=== PATIENT | male | born 1935 | race Caucasian/White ===

== ENCOUNTER 2020-03-13 20:16 | Inpatient (IN) ==
[2020-03-13] MEDS ORDERED: 0.9 % Sodium Chloride 1,000 ML IVC ONE (20:47)
[2020-03-13 21:50] LABS: Basophils % 0.2 %; Hematocrit 33.3 % (37.5-50.1); Hemoglobin 10.6 g/dL (12.9-16.9); Immature Granulocytes % 0.3 % (0-4); Lymphocytes # 0.6 K/mcL (0.6-4.6); Lymphocytes % 3.8 %; Mean Corpuscular HGB Conc 31.8 g/dL (31.6-35.5); Mean Corpuscular Hemoglobin 27.9 pg (28.0-33.3); Mean Corpuscular Volume 87.6 fL (83.0-100.0); Mean Platelet Volume 8.9 fL (9.4-12.4); Monocytes # 0.7 K/mcL (0.0-1.3); Monocytes % 4.1 %; Neutrophils # 14.6 K/mcL (1.6-8.9); Platelet Count 334 K/mcL (140-400); Segmented Neutrophils % 91.6 %; White Blood Count 15.9 K/mcL (4.3-11.1)
[2020-03-13 21:52] LABS: INR 1.4; Prothrombin Time 15.7 Seconds (9.4-12.1)
[2020-03-13 22:00] LABS: Activated Partial Thrombo Time 37.6 Seconds (26.0-36.0)
[2020-03-13 22:03] LABS: BUN/Creatinine Ratio 34 (6-26); Blood Urea Nitrogen 43 mg/dL (8-23); Calcium 9.9 mg/dL (8.6-10.3); Carbon Dioxide 28 mEq/L (23-29); Chloride 105 mEq/L (98-107); Glucose 182 mg/dL (70-105); Osmolality,Calculated 311 (280-300); Sodium 143 mEq/L (136-145); eGFR For African Americans > 60 (> 60); eGFR For Non-African Americans 54 (> 60)
[2020-03-13] MEDS ORDERED: Piperacillin/Tazobactam 4.5 GM in 0.9 % Sodium Chloride Mini Bag 100 ML IVPB ONE (22:10)
[2020-03-13] MEDS ORDERED: levoFLOXacin 750 MG/150 ML 750 MG/150 ML BAG IVPB ONE (22:11)
[2020-03-13 22:20] LABS: Bilirubin,Urine Negative (Negative); Blood,Urine Trace-intact (Negative); Clarity,Urine Clear (Clear); Color,Urine Yellow (Yellow); Glucose,Urine (UA) Normal (Normal); Ketones,Urine Trace mg/dL (Negative); Leukocyte Esterase,Urine Negative (Negative); Nitrite,Urine Negative (Negative); Protein,Urine 100 mg/dL (Neg-Trace); Urobilinogen,Urine Normal (Normal)
[2020-03-13 22:27] LABS: Bacteria,Urine None Seen per hpf (None-Few); RBC,Urine 0-3 per hpf (0-3); Squamous Epithelial Cell,Urine Few per hpf (None-Few); Transitional Epi Cells,Urine Few per hpf (None-Few); WBC,Urine 0-3 per hpf (0-3)
[2020-03-14] MEDS ORDERED: 0.9 % Sodium Chloride 1,000 ML IVC SCH ×2 (00:45→04:24)
[2020-03-14] MEDS ORDERED: Mag Hydrox/Al Hydrox/Simeth 30 ML UDC PO PRN (04:24)
[2020-03-14] MEDS ORDERED: Naloxone 0.4 MG/ML INJ IVP PRN (04:24)
[2020-03-14] MEDS ORDERED: Vancomycin (wt based) 1,000 MG VIAL IVPB SCH (04:24)
[2020-03-14] MEDS: 0.9 % Sodium Chloride 1,000 ML IVC SCH ×3 (05:02→22:15)
[2020-03-14] MEDS ORDERED: MOM Conc 10 ML UD.LIQ PO PRN (09:00)
[2020-03-14] MEDS: Divalproex (12 HR) 250 MG TABLET PO SCH ×2 (09:08→22:15)
[2020-03-14] MEDS: risperiDONE 0.25 MG TABLET PO SCH ×2 (09:08→22:15)
[2020-03-14] MEDS: Sennosides/Docusate Sodium TABLET PO SCH ×2 (09:18→22:15)
[2020-03-14] MEDS ORDERED: 0.9 % Sodium Chloride 500 ML IVC PRN (09:39)
[2020-03-14] MEDS ORDERED: Aminoglycoside Consult 1 EACH MC ONE (13:22)
[2020-03-14] MEDS: Haloperidol Lactate 5 MG/ML VIAL IVP PRN ×2 (13:38→22:15)
[2020-03-14] MEDS ORDERED: Vancomycin 500 MG in 0.9 % Sodium Chloride Mini Bag 100 ML IVPB ONE (18:38)
[2020-03-14 18:48] LABS: BUN/Creatinine Ratio 38 (6-26); Blood Urea Nitrogen 39 mg/dL (8-23); eGFR For African Americans > 60 (> 60); eGFR For Non-African Americans > 60 (> 60)
[2020-03-14] MEDS ORDERED: Vancomycin 1 EACH in 0.9 % Sodium Chloride 250 ML IVPB SCH (19:00)
[2020-03-14] MEDS: Melatonin 3 MG TABLET PO SCH (22:15)
[2020-03-15] MEDS: 0.9 % Sodium Chloride 1,000 ML IVC SCH (04:35)
[2020-03-15] MEDS ORDERED: *HR* Enoxaparin 30 MG/0.3 ML SYRINGE SQ SCH (06:00)
[2020-03-15] MEDS ORDERED: Divalproex Sodium 125 MG CAPSULE PO SCH (09:30)
[2020-03-15] MEDS: Divalproex Sodium 125 MG CAPSULE PO SCH ×2 (09:57→20:43)
[2020-03-15] MEDS: risperiDONE 0.25 MG TABLET PO SCH ×2 (09:59→20:43)
[2020-03-15] MEDS: Ferrous Sulfate Oral Soln 300 MG/5 ML UDC PO SCH (10:01)
[2020-03-15] MEDS: Docusate Oral Soln 100 MG/10 ML UDC PO SCH ×2 (10:02→20:43)
[2020-03-15] MEDS: Piperacillin/Tazobactam 3.375 GM in 0.9 % Sodium Chloride Mini Bag 100 ML IVPB SCH ×3 (10:04→19:46)
[2020-03-15] MEDS: Divalproex (12 HR) 250 MG TABLET PO SCH (10:20)
[2020-03-15 12:29] LABS: Basophils % 0.2 %; Hematocrit 29.1 % (37.5-50.1); Hemoglobin 9.3 g/dL (12.9-16.9); Immature Granulocytes % 0.7 % (0-4); Lymphocytes # 1.5 K/mcL (0.6-4.6); Lymphocytes % 7.2 %; Mean Corpuscular Hemoglobin 28.4 pg (28.0-33.3); Mean Corpuscular Volume 88.7 fL (83.0-100.0); Mean Platelet Volume 9.7 fL (9.4-12.4); Monocytes # 0.9 K/mcL (0.0-1.3); Monocytes % 4.5 %; Neutrophils # 17.9 K/mcL (1.6-8.9); Platelet Count 220 K/mcL (140-400); Red Blood Count 3.28 M/mcL (4.19-5.50); Red Cell Distribution Width 15.1 % (11.5-14.5); Segmented Neutrophils % 87.4 %; White Blood Count 20.5 K/mcL (4.3-11.1)
[2020-03-15] MEDS ORDERED: Piperacillin/Tazobactam 3.375 GM in 0.9 % Sodium Chloride Mini Bag 100 ML IVPB SCH (16:00)
[2020-03-15] MEDS: Melatonin 3 MG TABLET PO SCH (20:43)
[2020-03-15] MEDS: Haloperidol Lactate 5 MG/ML VIAL IVP PRN (22:29)
[2020-03-16] MEDS: Piperacillin/Tazobactam 3.375 GM in 0.9 % Sodium Chloride Mini Bag 100 ML IVPB SCH ×3 (04:08→21:45)
[2020-03-16 06:15] LABS: Basophils % 0.1 %; Eosinophils % 0.3 %; Hematocrit 28.1 % (37.5-50.1); Immature Granulocytes % 0.5 % (0-4); Lymphocytes # 1.4 K/mcL (0.6-4.6); Lymphocytes % 9.2 %; Mean Corpuscular Hemoglobin 27.7 pg (28.0-33.3); Mean Corpuscular Volume 86.5 fL (83.0-100.0); Mean Platelet Volume 9.7 fL (9.4-12.4); Monocytes # 0.7 K/mcL (0.0-1.3); Monocytes % 4.6 %; Neutrophils # 12.8 K/mcL (1.6-8.9); Platelet Count 208 K/mcL (140-400); Red Blood Count 3.25 M/mcL (4.19-5.50); Red Cell Distribution Width 14.8 % (11.5-14.5); Segmented Neutrophils % 85.3 %
[2020-03-16 06:22] LABS: Eosinophils # 0.1 K/mcL (0.0-0.6)
[2020-03-16 06:33] LABS: BUN/Creatinine Ratio 32 (6-26); Blood Urea Nitrogen 31 mg/dL (8-23); Calcium 8.4 mg/dL (8.6-10.3); Carbon Dioxide 26 mEq/L (23-29); Chloride 109 mEq/L (98-107); Glucose 79 mg/dL (70-105); Osmolality,Calculated 297 (280-300); Potassium 2.9 mEq/L (3.5-5.1); Sodium 141 mEq/L (136-145); eGFR For African Americans > 60 (> 60); eGFR For Non-African Americans > 60 (> 60)
[2020-03-16] MEDS: Ferrous Sulfate Oral Soln 300 MG/5 ML UDC PO SCH (11:48)
[2020-03-16] MEDS: Divalproex Sodium 125 MG CAPSULE PO SCH ×3 (11:48→21:44)
[2020-03-16] MEDS: Docusate Oral Soln 100 MG/10 ML UDC PO SCH ×2 (11:48→21:45)
[2020-03-16] MEDS: risperiDONE 0.25 MG TABLET PO SCH ×2 (11:49→21:44)
[2020-03-16] MEDS ORDERED: Potassium Chloride Elixir 20 MEQ/15 ML UDC PO ONE ×2 (12:35→13:15)
[2020-03-16 20:29] LABS: BUN/Creatinine Ratio 30 (6-26); Blood Urea Nitrogen 29 mg/dL (8-23); Calcium 8.9 mg/dL (8.6-10.3); Carbon Dioxide 22 mEq/L (23-29); Chloride 107 mEq/L (98-107); Glucose 90 mg/dL (70-105); Osmolality,Calculated 295 (280-300); Potassium 3.8 mEq/L (3.5-5.1); Sodium 140 mEq/L (136-145); eGFR For African Americans > 60 (> 60); eGFR For Non-African Americans > 60 (> 60)
[2020-03-16] MEDS: haloperidoL 1 MG TABLET PO PRN (21:44)
[2020-03-16] MEDS: Melatonin 3 MG TABLET PO SCH (21:44)
[2020-03-17] MEDS: Piperacillin/Tazobactam 3.375 GM in 0.9 % Sodium Chloride Mini Bag 100 ML IVPB SCH ×3 (04:45→21:00)
[2020-03-17] MEDS: Ferrous Sulfate Oral Soln 300 MG/5 ML UDC PO SCH (08:32)
[2020-03-17] MEDS: Divalproex Sodium 125 MG CAPSULE PO SCH ×2 (08:32→22:34)
[2020-03-17] MEDS: risperiDONE 0.25 MG TABLET PO SCH ×2 (08:32→22:35)
[2020-03-17] MEDS: Docusate Oral Soln 100 MG/10 ML UDC PO SCH ×2 (08:33→22:33)
[2020-03-17] MEDS: haloperidoL 1 MG TABLET PO PRN (22:35)
[2020-03-17] MEDS: Melatonin 3 MG TABLET PO SCH (22:35)
[2020-03-18] MEDS ORDERED: Permethrin Cream Rinse 60 ML LIQUID TP ONE (04:00)
[2020-03-18] MEDS: Piperacillin/Tazobactam 3.375 GM in 0.9 % Sodium Chloride Mini Bag 100 ML IVPB SCH ×3 (06:15→20:26)
[2020-03-18] MEDS: Divalproex Sodium 125 MG CAPSULE PO SCH ×3 (09:21→20:44)
[2020-03-18] MEDS: Ferrous Sulfate Oral Soln 300 MG/5 ML UDC PO SCH (09:21)
[2020-03-18] MEDS: Docusate Oral Soln 100 MG/10 ML UDC PO SCH ×2 (09:21→20:26)
[2020-03-18] MEDS: risperiDONE 0.25 MG TABLET PO SCH ×2 (09:21→20:25)
[2020-03-18] MEDS: *HR* LORazepam 0.5 MG TABLET PO PRN (20:25)
[2020-03-18] MEDS: Melatonin 3 MG TABLET PO SCH ×2 (20:25→20:44)
[2020-03-19] MEDS: Piperacillin/Tazobactam 3.375 GM in 0.9 % Sodium Chloride Mini Bag 100 ML IVPB SCH ×3 (03:15→21:13)
[2020-03-19 05:39] LABS: Basophils % 0.2 %; Eosinophils # 0.1 K/mcL (0.0-0.6); Eosinophils % 0.6 %; Hemoglobin 9.3 g/dL (12.9-16.9); Immature Granulocytes % 1.8 % (0-4); Lymphocytes # 1.1 K/mcL (0.6-4.6); Lymphocytes % 13.3 %; Mean Corpuscular HGB Conc 32.1 g/dL (31.6-35.5); Mean Corpuscular Hemoglobin 27.5 pg (28.0-33.3); Mean Corpuscular Volume 85.8 fL (83.0-100.0); Mean Platelet Volume 9.9 fL (9.4-12.4); Monocytes # 1.2 K/mcL (0.0-1.3); Neutrophils # 5.9 K/mcL (1.6-8.9); Platelet Count 224 K/mcL (140-400); Red Blood Count 3.38 M/mcL (4.19-5.50); Red Cell Distribution Width 14.8 % (11.5-14.5); Segmented Neutrophils % 70.1 %; White Blood Count 8.5 K/mcL (4.3-11.1)
[2020-03-19 05:55] LABS: BUN/Creatinine Ratio 20 (6-26); Blood Urea Nitrogen 16 mg/dL (8-23); Calcium 8.4 mg/dL (8.6-10.3); Carbon Dioxide 26 mEq/L (23-29); Chloride 105 mEq/L (98-107); Glucose 80 mg/dL (70-105); Osmolality,Calculated 290 (280-300); Potassium 3.2 mEq/L (3.5-5.1); Sodium 140 mEq/L (136-145); eGFR For African Americans > 60 (> 60); eGFR For Non-African Americans > 60 (> 60)
[2020-03-19] MEDS: Docusate Oral Soln 100 MG/10 ML UDC PO SCH ×2 (09:21→21:14)
[2020-03-19] MEDS: Divalproex Sodium 125 MG CAPSULE PO SCH ×3 (09:22→21:29)
[2020-03-19] MEDS: Ferrous Sulfate Oral Soln 300 MG/5 ML UDC PO SCH (09:22)
[2020-03-19] MEDS: risperiDONE 0.25 MG TABLET PO SCH ×2 (09:22→21:14)
[2020-03-19] MEDS: Potassium Chloride Elixir 20 MEQ/15 ML UDC PO SCH (12:50)
[2020-03-19] MEDS: *HR* LORazepam 0.5 MG TABLET PO PRN (14:22)
[2020-03-19] MEDS: Melatonin 3 MG TABLET PO SCH (21:14)
[2020-03-20] MEDS: Piperacillin/Tazobactam 3.375 GM in 0.9 % Sodium Chloride Mini Bag 100 ML IVPB SCH ×3 (05:40→20:05)
[2020-03-20] MEDS: Divalproex Sodium 125 MG CAPSULE PO SCH ×2 (08:32→20:15)
[2020-03-20] MEDS: Docusate Oral Soln 100 MG/10 ML UDC PO SCH ×2 (08:33→20:14)
[2020-03-20] MEDS: risperiDONE 0.25 MG TABLET PO SCH ×2 (08:33→20:18)
[2020-03-20] MEDS: Potassium Chloride Elixir 20 MEQ/15 ML UDC PO SCH (08:33)
[2020-03-20] MEDS: Ferrous Sulfate Oral Soln 300 MG/5 ML UDC PO SCH (08:33)
[2020-03-20] MEDS ORDERED: risperiDONE 0.25 MG TABLET PO ONE (09:15)
[2020-03-20] MEDS ORDERED: levoFLOXacin 500 MG/100 ML 500 MG/100 ML BAG IVPB SCH (21:00)
[2020-03-20] MEDS: Melatonin 3 MG TABLET PO SCH (22:40)
[2020-03-21] MEDS: Piperacillin/Tazobactam 3.375 GM in 0.9 % Sodium Chloride Mini Bag 100 ML IVPB SCH ×3 (04:13→20:55)
[2020-03-21 06:18] LABS: Hematocrit 27.9 % (37.5-50.1); Hemoglobin 9.1 g/dL (12.9-16.9); Mean Corpuscular HGB Conc 32.6 g/dL (31.6-35.5); Mean Corpuscular Hemoglobin 27.8 pg (28.0-33.3); Mean Corpuscular Volume 85.3 fL (83.0-100.0); Mean Platelet Volume 9.2 fL (9.4-12.4); Platelet Count 316 K/mcL (140-400); Red Blood Count 3.27 M/mcL (4.19-5.50); Red Cell Distribution Width 15.1 % (11.5-14.5); White Blood Count 11.3 K/mcL (4.3-11.1)
[2020-03-21 06:50] LABS: BUN/Creatinine Ratio 21 (6-26); Blood Urea Nitrogen 18 mg/dL (8-23); Calcium 8.6 mg/dL (8.6-10.3); Carbon Dioxide 22 mEq/L (23-29); Chloride 106 mEq/L (98-107); Glucose 94 mg/dL (70-105); Magnesium 2.3 mg/dL (1.6-2.6); Osmolality,Calculated 290 (280-300); Potassium 3.3 mEq/L (3.5-5.1); Sodium 139 mEq/L (136-145); eGFR For African Americans > 60 (> 60); eGFR For Non-African Americans > 60 (> 60)
[2020-03-21] MEDS ORDERED: *HR* LORazepam 2 MG/ML VIAL IVP ONE (10:41)
[2020-03-21] MEDS: Docusate Oral Soln 100 MG/10 ML UDC PO SCH ×2 (10:58→20:55)
[2020-03-21] MEDS: Ferrous Sulfate Oral Soln 300 MG/5 ML UDC PO SCH (10:58)
[2020-03-21] MEDS: risperiDONE 0.25 MG TABLET PO SCH ×2 (10:59→18:20)
[2020-03-21] MEDS: Divalproex Sodium 125 MG CAPSULE PO SCH ×3 (10:59→18:20)
[2020-03-21] MEDS: Potassium Chloride Elixir 20 MEQ/15 ML UDC PO SCH ×2 (10:59→20:54)
[2020-03-21 11:39] LABS: Bilirubin,Urine Small (Negative); Blood,Urine Trace-intact (Negative); Clarity,Urine Clear (Clear); Color,Urine Yellow (Yellow); Glucose,Urine (UA) Normal (Normal); Ketones,Urine Trace mg/dL (Negative); Leukocyte Esterase,Urine Negative (Negative); Nitrite,Urine Negative (Negative); PH,Urine 5.5 pH Units (5.0-8.0); Protein,Urine 100 mg/dL (Neg-Trace); Specific Gravity,Urine >= 1.030 (1.010-1.025); Urobilinogen,Urine Normal (Normal)
[2020-03-21 11:45] LABS: RBC,Urine 0-3 per hpf (0-3); Transitional Epi Cells,Urine Few per hpf (None-Few); WBC,Urine 0-3 per hpf (0-3)
[2020-03-21 11:52] LABS: Adenovirus Not Detected (Not Detect); Coronavirus 229E Not Detected (Not Detect); Coronavirus HKU1 Not Detected (Not Detect); Coronavirus NL63 Not Detected (Not Detect)
[2020-03-21 11:53] LABS: Bordetella Pertussis Not Detected (Not Detect); Chlamydophila pneumoniae Not Detected (Not Detect); Coronavirus OC43 Not Detected (Not Detect); Human Metapneumovirus Not Detected (Not Detect); Human Rhinovirus/Enterovirus DETECTED (Not Detect); Influenza A Subtype 2009 H1 Not Detected (Not Detect); Influenza B Not Detected (Not Detect); Mycoplasma pneumoniae Not Detected (Not Detect); Parainfluenza Virus 1 Not Detected (Not Detect); Parainfluenza Virus 2 Not Detected (Not Detect); Parainfluenza Virus 3 Not Detected (Not Detect); Parainfluenza Virus 4 Not Detected (Not Detect); Respiratory Syncytial Virus Not Detected (Not Detect)
[2020-03-21] MEDS: 0.9 % Sodium Chloride 1,000 ML IVC SCH (16:12)
[2020-03-21 16:39] LABS: Adenovirus Not Detected (Not Detect); Bordetella Pertussis Not Detected (Not Detect); Chlamydophila pneumoniae Not Detected (Not Detect); Coronavirus 229E Not Detected (Not Detect); Coronavirus HKU1 Not Detected (Not Detect); Coronavirus NL63 Not Detected (Not Detect); Coronavirus OC43 Not Detected (Not Detect); Human Metapneumovirus Not Detected (Not Detect); Human Rhinovirus/Enterovirus DETECTED (Not Detect); Influenza A Subtype 2009 H1 Not Detected (Not Detect); Influenza B Not Detected (Not Detect); Mycoplasma pneumoniae Not Detected (Not Detect); Parainfluenza Virus 1 Not Detected (Not Detect); Parainfluenza Virus 2 Not Detected (Not Detect); Parainfluenza Virus 3 Not Detected (Not Detect); Parainfluenza Virus 4 Not Detected (Not Detect); Respiratory Syncytial Virus Not Detected (Not Detect)
[2020-03-21] MEDS: Melatonin 3 MG TABLET PO SCH (20:55)
[2020-03-21] MEDS ORDERED: Permethrin Cream Rinse 60 ML LIQUID TP ONE (22:13)
[2020-03-21] MEDS: *HR* LORazepam 0.5 MG TABLET PO PRN (23:05)
[2020-03-22] MEDS: Piperacillin/Tazobactam 3.375 GM in 0.9 % Sodium Chloride Mini Bag 100 ML IVPB SCH ×3 (03:52→20:25)
[2020-03-22] MEDS: 0.9 % Sodium Chloride 1,000 ML IVC SCH (05:32)
[2020-03-22 05:45] LABS: Basophils # 0.1 K/mcL (0.0-0.2); Basophils % 0.4 %; Eosinophils % 0.2 %; Hematocrit 30.2 % (37.5-50.1); Hemoglobin 9.7 g/dL (12.9-16.9); Immature Granulocytes % 0.9 % (0-4); Lymphocytes % 8.3 %; Mean Corpuscular HGB Conc 32.1 g/dL (31.6-35.5); Mean Corpuscular Hemoglobin 27.7 pg (28.0-33.3); Mean Corpuscular Volume 86.3 fL (83.0-100.0); Mean Platelet Volume 9.1 fL (9.4-12.4); Monocytes # 0.8 K/mcL (0.0-1.3); Monocytes % 6.7 %; Neutrophils # 10.3 K/mcL (1.6-8.9); Platelet Count 354 K/mcL (140-400); Red Cell Distribution Width 15.3 % (11.5-14.5); Segmented Neutrophils % 83.5 %; White Blood Count 12.3 K/mcL (4.3-11.1)
[2020-03-22 05:59] LABS: Alanine Aminotransferase 19 Units/L (7-52); Albumin 2.8 g/dL (3.5-5.7); Albumin/Globulin Ratio 0.7 (1.1-2.2); Alkaline Phosphatase 65 Units/L (34-104); Aspartate Amino Transferase 16 Units/L (13-39); BUN/Creatinine Ratio 28 (6-26); Bilirubin,Total 0.5 mg/dL (0.3-1.0); Blood Urea Nitrogen 24 mg/dL (8-23); Calcium 8.9 mg/dL (8.6-10.3); Carbon Dioxide 24 mEq/L (23-29); Chloride 110 mEq/L (98-107); Globulin 3.9 g/dL (2.4-3.5); Glucose 95 mg/dL (70-105); Magnesium 2.1 mg/dL (1.6-2.6); Osmolality,Calculated 302 (280-300); Potassium 3.1 mEq/L (3.5-5.1); Sodium 144 mEq/L (136-145); Total Protein 6.7 g/dL (6.4-8.9); eGFR For African Americans > 60 (> 60); eGFR For Non-African Americans > 60 (> 60)
[2020-03-22] MEDS: Ferrous Sulfate Oral Soln 300 MG/5 ML UDC PO SCH (08:14)
[2020-03-22] MEDS: risperiDONE 0.25 MG TABLET PO SCH ×3 (08:15→19:49)
[2020-03-22] MEDS: Divalproex Sodium 125 MG CAPSULE PO SCH ×4 (08:15→21:54)
[2020-03-22] MEDS: Docusate Oral Soln 100 MG/10 ML UDC PO SCH ×2 (08:15→21:54)
[2020-03-22] MEDS: Potassium Chloride Elixir 20 MEQ/15 ML UDC PO SCH ×2 (08:15→21:54)
[2020-03-22] MEDS: 0.9 % Sodium Chloride w KCl 20 MEQ/1,000 ML MLS IVC SCH ×2 (08:20→20:15)
[2020-03-22] MEDS: *HR* LORazepam 0.5 MG TABLET PO PRN (19:48)
[2020-03-22] MEDS: Melatonin 3 MG TABLET PO SCH (19:48)
[2020-03-22] MEDS ORDERED: Piperacillin/Tazobactam 3.375 GM VIAL ONE (20:22)
[2020-03-23] MEDS: Piperacillin/Tazobactam 3.375 GM in 0.9 % Sodium Chloride Mini Bag 100 ML IVPB SCH ×3 (03:54→22:38)
[2020-03-23 05:35] LABS: Hematocrit 30.6 % (37.5-50.1); Hemoglobin 9.7 g/dL (12.9-16.9); Mean Corpuscular HGB Conc 31.7 g/dL (31.6-35.5); Mean Corpuscular Hemoglobin 27.6 pg (28.0-33.3); Mean Corpuscular Volume 87.2 fL (83.0-100.0); Mean Platelet Volume 9.3 fL (9.4-12.4); Platelet Count 361 K/mcL (140-400); Red Blood Count 3.51 M/mcL (4.19-5.50); Red Cell Distribution Width 15.3 % (11.5-14.5); White Blood Count 9.8 K/mcL (4.3-11.1)
[2020-03-23 05:55] LABS: BUN/Creatinine Ratio 22 (6-26); Blood Urea Nitrogen 16 mg/dL (8-23); Calcium 8.5 mg/dL (8.6-10.3); Carbon Dioxide 23 mEq/L (23-29); Chloride 114 mEq/L (98-107); Glucose 81 mg/dL (70-105); Osmolality,Calculated 302 (280-300); Potassium 3.5 mEq/L (3.5-5.1); Sodium 146 mEq/L (136-145); eGFR For African Americans > 60 (> 60); eGFR For Non-African Americans > 60 (> 60)
[2020-03-23] MEDS: Docusate Oral Soln 100 MG/10 ML UDC PO SCH ×2 (08:28→19:57)
[2020-03-23] MEDS: risperiDONE 0.25 MG TABLET PO SCH ×2 (08:28→19:53)
[2020-03-23] MEDS: Divalproex Sodium 125 MG CAPSULE PO SCH ×3 (08:28→19:52)
[2020-03-23] MEDS: Ferrous Sulfate Oral Soln 300 MG/5 ML UDC PO SCH (08:28)
[2020-03-23] MEDS: Potassium Chloride Elixir 20 MEQ/15 ML UDC PO SCH ×2 (08:28→19:57)
[2020-03-23] MEDS: 0.9 % Sodium Chloride w KCl 20 MEQ/1,000 ML MLS IVC SCH ×2 (09:44→23:28)
[2020-03-23] MEDS ORDERED: Bisacodyl 10 MG RECTAL SUPPOSITORY RC ONE (18:39)
[2020-03-23] MEDS: *HR* LORazepam 0.5 MG TABLET PO PRN (19:53)
[2020-03-23] MEDS: Melatonin 3 MG TABLET PO SCH (19:53)
[2020-03-24] MEDS: Piperacillin/Tazobactam 3.375 GM in 0.9 % Sodium Chloride Mini Bag 100 ML IVPB SCH ×2 (04:00→11:56)
[2020-03-24] MEDS ORDERED: Vancomycin 500 MG in 0.9 % Sodium Chloride Mini Bag 100 ML IVPB SCH (07:00)
[2020-03-24 11:39] VITALS: BP 146/70
[2020-03-24] MEDS: risperiDONE 0.25 MG TABLET PO SCH (11:46)
[2020-03-24] MEDS: Divalproex Sodium 125 MG CAPSULE PO SCH (11:46)
[2020-03-24] MEDS: Potassium Chloride Elixir 20 MEQ/15 ML UDC PO SCH (11:52)
[2020-03-24] MEDS: Ferrous Sulfate Oral Soln 300 MG/5 ML UDC PO SCH (11:52)
[2020-03-24] MEDS: Docusate Oral Soln 100 MG/10 ML UDC PO SCH (11:55)
[2020-03-24] MEDS ORDERED: Aminoglycoside Consult 1 EACH MC ONE (14:09)
[2020-03-24] MEDS ORDERED: Doxycycline 100 MG CAPSULE PO SCH (21:00)
== END 2020-03-24 14:29 | DRG 178 ==
LOC: INPGRE 20:16 → EMEROOGRE 20:16 → INPGRE 03-14 04:20 → SUATTDRO 03-14 10:23
PROVIDERS: ADMIT Student in an Organized Health Care Education/Training Program; ATTEND Family Medicine